=== PATIENT | male | born 1965 | race Caucasian/White ===

== ENCOUNTER 2016-06-18 11:48 | Outpatient (CLI) | payer OTHER | END 2016-06-18 11:49 | disposition home or self-care (01) | DX: M79.641 Pain in right hand (principal) ==

== ENCOUNTER 2016-10-07 08:00 | Outpatient (CLI) | payer OTHER | END 2016-10-07 23:59 | LOC: LAB.WCP 08:00 | PROVIDERS: ATTEND Family Medicine | DX: Z12.11 Encounter for screening for malignant neoplasm of colon (principal) | CPT/HCPCS: 82274 ==

== ENCOUNTER 2017-07-28 12:40 | Outpatient (CLI) | payer OTHER | END 2017-07-28 12:41 | disposition home or self-care (01) | LOC: DI 12:40 | PROVIDERS: ATTEND Family Medicine | DX: R55 Syncope and collapse (principal) | CPT/HCPCS: 93306 ==

== ENCOUNTER 2017-07-31 09:41 | Outpatient (CLI) | payer OTHER ==
[2017-07-31] MEDS ORDERED: REGADENOSON 0.4 MG/5 ML SYRINGE IVP ONE (12:18)
--- NOTE | 2017-07-31 16:51 | Nuclear Medicine Report ---
EXAM: SINGLE-ISOTOPE PHARMACOLOGICAL STRESS TEST WITH LEXISCAN. SINGLE-ISOTOPE AND SAME-DAY REST/STRESS SANDRA CARDIAL PERFUSION SCANS WITH TOMOGRAPHIC IMAGING, QUANTITATIVE ANALYSIS, WALL MOTION ANALYSIS AND COLLIN CULATION OF EJECTION FRACTION. EXAM DATE: 07/31/2017 CLINICAL HISTORY: Near-syncope, hypertension COMPARISON: None. TECHNIQUE: Following the intravenous administration of 10.2 mCi of Tc-99m sestamibi, a rest myocardia l perfusion scan was done with tomography. Motion correction was applied when appropriate. After a delay of several hours on the same day, a pharmacological stress was performed with the infus ion of 0.4 mg of Lexiscan. According to protocol, 40.6 mCi of Tc-99m sestamibi was injected for stres s myocardial perfusion scan. Stress myocardial perfusion was done with tomography without attenuation correction. Motion correction was applied when appropriate. Gated tomographic images were obtained for wall motion analysis and computation of left ventricular ejection fraction. FINDINGS: Perfusion images: Left ventricular chamber size is normal at rest and unchanged at stress. No convincing fixed perfusion deficits. There appears to be apical thinning artifact. No convincing reversible perfusion deficits. Gated images: No convincing focal wall motion abnormality. The left ventricular ejection fraction is estimated at 64% (normal > 50%). IMPRESSION: 1. No convincing reversible perfusion deficits to indicate stress-induced ischemia. 2. No convincing fixed perfusion deficits. 3. Left ventricular ejection fraction of 64% (normal > 50%). [facility] Referring Provider Line: [phone] SITE ID: [id number]
[2017-07-31 17:25] VITALS: BP 142/66
--- NOTE | 2017-07-31 18:01 | CARDIAC PROCEDURE NOTE ---
DATE OF SERVICE: 07/31/2017 Physician: JHON Moore PRIMARY CARE PHYSICIAN: Dr. Rk Pleitez. PROCEDURE: Lexiscan pharmaceutical stress test. PROCEDURE SYMPTOMS: Near syncope and heart rate accelerates quickly with exercise. CARDIAC RISK FACTORS: Include age, family history, hypertension and hyperlipidemia. PREVIOUS CARDIAC PROCEDURES: ETT. CURRENT SYMPTOMATOLOGY: None. CLINICAL HISTORY: A 51-year-old male without known coronary artery disease. INITIAL RESTING VITAL SIGNS: BP 142/66. Heart rate 58. Height 69 inches. Weight 182 pounds. BMI 26.9. PROCEDURE AND FINDINGS: Patient identity and date verified, consent signed, pharmaceutical check. Pharmacologic stress testing was performed with Lexiscan at a dose of 0.4 mg over 10 seconds. The heart rate increased to 113 beats per minute from the infusion. Blood pressure response was normal during the stress procedure. The patient developed infusion-related symptoms which included abdominal pain and headache, and those symptoms resolved spontaneously. The resting ECG demonstrated normal sinus rhythm with no ST or T-wave changes. Maximum ST-segment depression with stress was less than or 0. There was no ectopy. FINAL IMPRESSIONS 1. Negative electrocardiogram for ischemia in the setting of vasodilator stress. 2. Nondiagnostic stress test for angina. 3. No ectopy. 4. Await myocardial perfusion report. TD: 07/31/2017 18:00
== END 2017-07-31 09:42 | disposition home or self-care (01) ==
LOC: DI 09:41
PROVIDERS: ATTEND Family Medicine
DX: R55 Syncope and collapse (principal); E78.5 Hyperlipidemia, unspecified; I10 Essential (primary) hypertension
CPT/HCPCS: 78452; 93017; A9500; J2785

== ENCOUNTER 2018-11-02 08:21 | Outpatient (CLI) | payer OTHER ==
--- NOTE | 2018-11-02 09:58 | XRAY Report ---
Reason: SACROILIITIS Procedure Date: 11/02/2018 Accession Number: [id number] / [id number] Procedure: WCP - Sacroiliac Joints CPT Code: FULL RESULT: EXAM: SACROILIAC JOINT RADIOGRAPHY EXAM DATE: 11/02/2018 08:40 AM. CLINICAL HISTORY: Low back pain with radiculopathy. COMPARISON: None. TECHNIQUE: 3 views. FINDINGS: Bones: Normal. No fracture or bone lesion. Joints: The sacroiliac joints are normal. Soft Tissues: Normal. IMPRESSION: Normal sacroiliac joint radiography. [facility]
== END 2018-11-02 08:22 | disposition home or self-care (01) ==
LOC: DI.WCP 08:21
PROVIDERS: ATTEND Family Medicine
DX: M46.1 Sacroiliitis, not elsewhere classified (principal)
CPT/HCPCS: 72202